=== PATIENT | male | born 1970 | race Two or more races ===

== ENCOUNTER 2018-12-19 10:46 | Emergency (ER) | payer SELFPAY ==
[~2018-12-19] VITALS: Ht 165.1 cm; Wt 83.0 kg
[2018-12-19] MEDS ORDERED: PEG3350510 GM PO (10:55)
[2018-12-19] MEDS ORDERED: ACETAMINOPHEN-1 EACH ORAL (10:56)
[2018-12-19 11:20] VITALS: BP 143/89
--- NOTE | 2018-12-19 11:21 | NUR ---
Patient complaint of pain on left lower back and rating it at 10/10 with a sharp sensation. previous diagnosis of renal stones three months ago and prescribed medication to clear stones. he is alert and able to follow commands, he is coherent to name, time, place and sitiation, able to communicate with no slurr or delay, has a stable gait with and good desterity 5/5.
[2018-12-19 11:27] LABS: BASOPHILS % (AUTO) 0.9 % (0.0-2.0); EOSINOPHILS % (AUTO) 2.1 % (0.0-3.0); HEMATOCRIT 45.7 % (42.0-52.0); HEMOGLOBIN 15.4 G/DL (14.2-18.0); MEAN CORPUSCULAR VOLUME 84 FL (80-99); MONOCYTES % (AUTO) 5.1 % (1.0-10.0); NEUTROPHILS % (AUTO) 65.9 % (45.0-75.0); PLATELET COUNT 256 K/UL (150-450); RED BLOOD COUNT 5.45 M/UL (4.70-6.10); RED CELL DISTRIBUTION WIDTH 12.1 % (11.6-14.8); WHITE BLOOD COUNT 6.9 K/UL (4.8-10.8)
--- NOTE | 2018-12-19 11:29 | NUR ---
Nursing Note: patient taken to CT scan of the abdomen, HR is 72, RR of 18 saturating at 98% on room air with no retractions noted, BP is 123/81.
[2018-12-19 11:30] VITALS: BP 123/81
[2018-12-19 11:44] LABS: ANION GAP 8 mmol/L (5-15); BLOOD UREA NITROGEN 16 mg/dL (7-18); CALCIUM 8.7 MG/DL (8.5-10.1); CARBON DIOXIDE 26 MMOL/L (21-32); CHLORIDE 105 MMOL/L (98-107); CREATININE 1.2 MG/DL (0.55-1.30); POTASSIUM 4.9 MMOL/L (3.5-5.1); SODIUM 139 MMOL/L (136-145)
[2018-12-19] MEDS ORDERED: Ketorolac 30mg Inj IV ONE (11:45)
[2018-12-19] MEDS ORDERED: Morphine Sulfate 4mg/ml Inj (IV USE ONLY) IVP ONE (11:45)
[2018-12-19 11:49] LABS: ALANINE AMINOTRANSFERASE 22 U/L (12-78); ALBUMIN 3.7 G/DL (3.4-5.0); ALBUMIN/GLOBULIN RATIO 0.9 (1.0-2.7); ALKALINE PHOSPHATASE 76 U/L (46-116); ASPARTATE AMINO TRANSFERASE 25 U/L (15-37); BILIRUBIN,TOTAL 0.6 MG/DL (0.2-1.0)
--- NOTE | 2018-12-19 12:01 | NUR ---
ED Nurse Note:pt. is back from CT scan- given IV pain meds
[2018-12-19 12:22] LABS: BILIRUBIN, URINE NEGATIVE (NEGATIVE); COLOR,URINE PALE YELLOW; GLUCOSE, URINE (UA) NEGATIVE (NEGATIVE); KETONES,URINE NEGATIVE (NEGATIVE); LEUKOCYTE ESTERASE ,URINE NEGATIVE (NEGATIVE); NITRITE,URINE NEGATIVE (NEGATIVE); PH,URINE 5 (4.5-8.0); PROTEIN,URINE NEGATIVE (NEGATIVE); UROBILINOGEN,URINE NORMAL MG/DL (0.0-1.0)
[2018-12-19 12:26] LABS: APPEARANCE,URINE CLEAR
--- NOTE | 2018-12-19 12:51 | Diagnostic Imaging Report ---
Indication: Abdominal pain Technique: Continuous helical transaxial imaging of the abdomen and pelvis was obtained from the lung bases to the pubic symphysis. No intravenous contrast was administered. Coronal 2-D reformats were also obtained. Automatic Exposure Control was utilized. Total Dose length Product (DLP): [address] Dose Index Volume (CTDIvol): 15 mGy Comparison: none Findings: There are technical artifacts present limiting evaluation. The lung bases are clear. There is no hydronephrosis or renal stones identified. There is questionable ill-definition of the left kidney with minimal perinephric stranding. The finding, if real may be due to infection or pyelonephritis. The study is limited in this regard given the nonadministration of IV contrast material. There is mild thickening of the wall of the urinary bladder. Correlate for cystitis. Partial cecal resection noted with the staple line. Appendix is absent. The ileocolic anastomosis appears grossly unremarkable. Bowel gas pattern is nonspecific. There is a tiny supra umbilical hernia containing fat. There is no free fluid. Gallbladder is unremarkable. There is a small left inguinal hernia containing fat. IMPRESSION: Questionable, mild ill-definition of the left kidney. Correlate for pyelonephritis. Mild thickening of the bladder wall suggestive of cystitis. No hydronephrosis or evidence of obstructive nephropathy. Limited evaluation due to technical artifacts. Exam also limited by the nonadministration of IV contrast. Status post partial colonic resection in the right lower quadrant. Ileocolic anastomosis noted. Appendectomy. The CT scanner at [facility] is accredited by the [employer] and the scans are performed using dose optimization techniques as appropriate to a performed exam including Automatic Exposure control.
[2018-12-19] MEDS ORDERED: PREDNISONE20 MG ORAL (13:20)
[2018-12-19 13:45] VITALS: BP 120/74
--- NOTE | 2018-12-19 13:49 | NUR ---
Discharge Summary: Patient sent home after reviewing ct scan by er doctor, report no pain at the left flank region. he is able to talk with no slur or delay and remains coherent, he answers questions accurately, IV on the Left AC removed, patient is able to stand with steady gait and walk with no impairement, uber taken home and arranged by patient.
--- NOTE | 2018-12-19 22:06 | Emergency Room Report ---
History of Present Illness General Chief Complaint: Back Pain-No Injury Source: Patient Present Illness HPI Patient is a 48-year-old male presents after increased low back pain. Reports of increased pain to the left side of his abdomen. Radiating to his groin. He denies recent trauma. Reports having some prior history of kidney stones. Denies any fever. Denies any vomiting. Pain is worse with movement. Sharp in nature. Reports having some increased dysuria. He denies any hematuria. Pain is constant.Patient had not been losing weight. Denies any history of drug use. Allergies: Coded Allergies: No Known Allergies (Unverified , 12/19/18) Patient History Past Medical History: see triage record Reviewed Nursing Documentation: PMH: Agreed; PSxH: Agreed Nursing Documentation-PMH Past Medical History: No History, Except For Review of Systems All Other Systems: negative except mentioned in HPI Physical Exam Vital Signs Date Time Temp Pulse Resp B/P (MAP) Pulse Ox O2 Delivery O2 Flow Rate FiO2 12/19/18 10:52 98.1 79 19 131/98 (109) 97 Room Air Sp02 EP Interpretation: reviewed, normal General Appearance: normal inspection, well appearing, no apparent distress, alert, GCS 15 Head: atraumatic ENT: normal ENT inspection, hearing grossly normal, normal voice Neck: normal inspection, full range of motion, supple, no bony tend Respiratory: normal inspection, lungs clear, normal breath sounds, no respiratory distress, no retraction, no wheezing Cardiovascular #1: regular rate, rhythm, no edema Gastrointestinal: normal inspection, normal bowel sounds, non tender, soft, no guarding, no hernia Genitourinary: no CVA tenderness Musculoskeletal: normal inspection, gait/station normal, decreased range of motion Neurologic: normal inspection, alert, oriented x3, responsive, reading instructor III-XII nml as tested, speech normal Psychiatric: normal inspection, judgement/insight normal, mood/affect normal Medical Decision Making Diagnostic Impression: Primary Impression: Bladder wall thickening Additional Impression: Back pain ER Course Patient presented for back pain. Differential diagnosis included but was not limited to herniated disc, cauda equina syndrome, abdominal aortic aneurysm, perforated ulcer, spinal epidural abscess, spinal stenosis, lumbar fracture, metastatic lesion, pyelonephritis. He does have some prior history of renal stone. Patient was noted to have a history concerning for kidney stone. CT imaging of the abdomen pelvis was ordered due to patient's history. CT imaging showed no apparent acute abnormality. Patient was given medication for pain with improvement. He was noted to have improvement in pain. Patient was given prescription for symptomatic treatment. Patient was advised to recheck with primary care physician in 1-2 days. Patient to return for any worsening, pain, fever, incontinence or other concerns. Labs Test 12/19/18 11:05 White Blood Count 6.9 K/UL (4.8-10.8) Red Blood Count 5.45 M/UL (4.70-6.10) Hemoglobin 15.4 G/DL (14.2-18.0) Hematocrit 45.7 % (42.0-52.0) Mean Corpuscular Volume 84 FL (80-99) Mean Corpuscular Hemoglobin 28.2 PG (27.0-31.0) Mean Corpuscular Hemoglobin Concent 33.6 G/DL (32.0-36.0) Red Cell Distribution Width 12.1 % (11.6-14.8) Platelet Count 256 K/UL (150-450) Mean Platelet Volume 7.0 FL (6.5-10.1) Neutrophils (%) (Auto) 65.9 % (45.0-75.0) Lymphocytes (%) (Auto) 26.0 % (20.0-45.0) Monocytes (%) (Auto) 5.1 % (1.0-10.0) Eosinophils (%) (Auto) 2.1 % (0.0-3.0) Basophils (%) (Auto) 0.9 % (0.0-2.0) Prothrombin Time 10.8 SEC (9.30-11.50) Prothromb Time International Ratio 1.0 (0.9-1.1) Activated Partial Thromboplast Time 27 SEC (23-33) Urine Color Pale yellow Urine Appearance Clear Urine pH 5 (4.5-8.0) Urine Specific [place] 1.020 (1.005-1.035) Urine Protein Negative (NEGATIVE) Urine Glucose (UA) Negative (NEGATIVE) Urine Ketones Negative (NEGATIVE) Urine Blood Negative (NEGATIVE) Urine Nitrite Negative (NEGATIVE) Urine Bilirubin Negative (NEGATIVE) Urine Urobilinogen Normal MG/DL (0.0-1.0) Urine Leukocyte Esterase Negative (NEGATIVE) Sodium Level 139 MMOL/L (136-145) Potassium Level 4.9 MMOL/L (3.5-5.1) Chloride Level 105 MMOL/L (98-107) Carbon Dioxide Level 26 MMOL/L (21-32) Anion Gap 8 mmol/L (5-15) Blood Urea Nitrogen 16 mg/dL (7-18) Creatinine 1.2 MG/DL (0.55-1.30) Estimat Glomerular Filtration Rate > 60 mL/min (>60) Glucose Level 110 MG/DL (74-106) Calcium Level 8.7 MG/DL (8.5-10.1) Total Bilirubin 0.6 MG/DL (0.2-1.0) Aspartate Amino Transf (AST/SGOT) 25 U/L (15-37) Alanine Aminotransferase (ALT/SGPT) 22 U/L (12-78) Alkaline Phosphatase 76 U/L (46-116) Total Protein 7.9 G/DL (6.4-8.2) Albumin 3.7 G/DL (3.4-5.0) Globulin 4.2 g/dL Albumin/Globulin Ratio 0.9 (1.0-2.7) Last Vital Signs Date Time Temp Pulse Resp B/P (MAP) Pulse Ox O2 Delivery O2 Flow Rate FiO2 12/19/18 13:45 97.2 62 12 120/74 100 Room Air Status: improved Disposition: HOME, SELF-CARE Condition: Stable Departure Forms: Return to Work Return to Work in (Days): 2 Patient Instructions: Back Pain, Adult Delgado Piedra MD Dec 19, 2018 22:06
== END 2018-12-19 13:45 | disposition home or self-care (01) ==
LOC: EMR 11:20
DX: M54.9 Dorsalgia, unspecified (principal); N32.9 Bladder disorder, unspecified
CPT/HCPCS: 36415; 74176; 80053; 81003; 85025; 85610; 85730; 96374; 96375; 99284; J1885; J2270

== ENCOUNTER 2018-12-22 14:54 | Emergency (ER) | payer SELFPAY ==
[~2018-12-22] VITALS: Ht 165.1 cm; Wt 83.0 kg
[~2018-12-22 14:54] MED LIST: ACETAMINOPHEN-1 EACH ORAL; PEG3350510 GM PO; PREDNISONE20 MG ORAL
[2018-12-22 15:06] VITALS: BP 147/73
--- NOTE | 2018-12-22 15:07 | NUR ---
ED Nurse Note: pt walked in to ED due to worsening left lower back pain for 3 days. pt had kidney stone couple months ago and prescribed medication. came to [facility] 3 days ago for smiliar sx. instructed to come back if sx gets worse. denies any difficulty or painful urination. per pt, feel pain when he strech out the arm. without movement, no pain, just discomfort. AAO x4. respirations even and non-labored noted. skin warm to touch. no open wound noted. will wait for the further order.
[2018-12-22] MEDS ORDERED: NKM (15:12)
[2018-12-22] MEDS ORDERED: Ketorolac 30mg Inj IM ONE (15:45)
[2018-12-22 16:05] LABS: APPEARANCE,URINE CLEAR; BILIRUBIN, URINE NEGATIVE (NEGATIVE); COLOR,URINE PALE YELLOW; GLUCOSE, URINE (UA) NEGATIVE (NEGATIVE); KETONES,URINE NEGATIVE (NEGATIVE); LEUKOCYTE ESTERASE ,URINE NEGATIVE (NEGATIVE); NITRITE,URINE NEGATIVE (NEGATIVE); PH,URINE 5 (4.5-8.0); PROTEIN,URINE NEGATIVE (NEGATIVE); UROBILINOGEN,URINE NORMAL MG/DL (0.0-1.0)
[2018-12-22] MEDS ORDERED: MELOXICAM15 MG PO (16:41)
--- NOTE | 2018-12-22 16:45 | NUR ---
ER DISCHARGE NOTE: Patient is cleared to be discharged per ERMD, pt is aox4, on room air, with stable vital signs. pt was given dc and prescription instructions, pt was able to verbalize understanding, pt id band removed without complications. pt is able to ambulate with steady gait. pt took all belongings.
--- NOTE | 2018-12-22 17:59 | Emergency Room Report ---
History of Present Illness General Chief Complaint: Lower Back Pain or Injury Source: Patient Present Illness HPI 48-year-old male complaining of left-sided low back pain x2 days. Denies fever, weight loss, numbness, weakness, tingling, bowel/bladder incontinence. Pain is 5/10, worse when reaching forward. Denies fall or injury. Normal gait. Patient states that he was seen here 3 days ago, discharged ith prescription of prednisone. Had CT scan of the abdomen/ pelvis showing mild thickening of the bladder wall, no hydronephrosis. Allergies: Coded Allergies: No Known Allergies (Unverified , 12/19/18) Patient History Past Medical History: see triage record Past Surgical History: other - Appendectomy, colonic resection Reviewed Nursing Documentation: PMH: Agreed; PSxH: Agreed Nursing Documentation-PMH Past Medical History: No History, Except For Review of Systems All Other Systems: negative except mentioned in HPI Physical Exam Vital Signs Date Time Temp Pulse Resp B/P (MAP) Pulse Ox O2 Delivery O2 Flow Rate FiO2 12/22/18 14:57 98.2 75 18 147/73 (97) 98 Room Air Sp02 EP Interpretation: reviewed, normal General Appearance: no apparent distress, alert, GCS 15, non-toxic Respiratory: chest non-tender, lungs clear, normal breath sounds, speaking full sentences Cardiovascular #1: regular rate, rhythm, no edema Musculoskeletal: other - lumbar region: no deformity, no swelling, no spinal tenderness, mild tenderness to left paravertebral muscles. Neurologic: alert, oriented x3, responsive, motor strength/tone normal, sensory intact, speech normal Skin: no rash, warm/dry Medical Decision Making PA Attestation This patient was seen under the direct supervision of Dr. Garza, who directed all aspects of care and diagnostic interpretation. Diagnostic Impression: Primary Impression: Back pain ER Course ED course HPI: 48-year-old male complaining of left-sided low back pain x2 days. Denies fever, weight loss, numbness, weakness, tingling, bowel/bladder incontinence. Denies fall or injury. Pain is 5/10, worse when reaching forward. Normal gait. Patient states that he was seen here 3 days ago, discharged ith prescription of prednisone. Had CT scan of the abdomen/ pelvis showing mild thickening of the bladder wall, no hydronephrosis. Ddx: UTI, muscle strain, kidney stone HPI & PE consistent with: Back pain Orders/ Interventions: Pain worse with movement. Suspect symptoms likely MSK. UA normal. Patient medicated with Toradol 30 mg IM with improvement of symptoms. Disposition: Patient discharged with prescription for meloxicam. Advised trial of moist heat (warm compress) to back, use for 15 minutes, 4 times a day, continue normal physical activities as tolerated. Advised light stretches as tolerated. Avoid heavy lifting and strenuous exercise until better. Advised to avoid prolonged laying down, sitting, or standing, get up every so often to stretch At this time pt. is stable for d/c to home. Will provide printed patient care instructions, and any necessary prescriptions. Care plan and follow up instructions have been discussed with the patient prior to discharge. Please note that this Emergency Department Report was dictated using [employer] technology software, occasionally this can lead to erroneous entry secondary to interpretation by the dictation equipment. Laboratory Tests Test 12/22/18 15:40 Urine Color Pale yellow Urine Appearance Clear Urine pH 5 (4.5-8.0) Urine Specific [place] 1.025 (1.005-1.035) Urine Protein Negative (NEGATIVE) Urine Glucose (UA) Negative (NEGATIVE) Urine Ketones Negative (NEGATIVE) Urine Blood Negative (NEGATIVE) Urine Nitrite Negative (NEGATIVE) Urine Bilirubin Negative (NEGATIVE) Urine Urobilinogen Normal MG/DL (0.0-1.0) Urine Leukocyte Esterase Negative (NEGATIVE) Urine RBC 0-2 /HPF (0 - 0) H Urine WBC 0-2 /HPF (0 - 0) Urine Squamous Epithelial Cells Occasional /LPF Urine Bacteria Occasional /HPF (NONE) Last Vital Signs Date Time Temp Pulse Resp B/P (MAP) Pulse Ox O2 Delivery O2 Flow Rate FiO2 12/22/18 16:44 98.0 70 16 133/70 100 Room Air Disposition: HOME, SELF-CARE Condition: Improved Scripts Meloxicam* (MELOXICAM*) 15 Mg Tablet 15 MG PO DAILY, #10 TAB Prov: Jessica Vanegas 12/22/18 Referrals: NOT CHOSEN IPA/,REFERRING (PCP) Patient Instructions: Lumbosacral Strain, Back Pain, Adult Additional Instructions: Follow-up with PCP in 2 days or return to ER if worsening symptoms, new symptoms or sudden change in condition. Jessica Vnaegas Dec 22, 2018 17:58
== END 2018-12-22 16:45 | disposition home or self-care (01) ==
LOC: EMR 15:33
DX: M54.5 Low back pain (principal); Z90.49 Acquired absence of other specified parts of digestive tract
CPT/HCPCS: 81001; 96372; 99283; J1885